=== PATIENT | male | born 1950 | race Caucasian/White ===

== ENCOUNTER → 2024-02-17 16:31 | Outpatient (REF) | payer MEDICARE, SELFPAY | LOC: RAD 16:31 | PROVIDERS: ATTENDING PHYSICIAN Family Medicine | DX: M79.89 Other specified soft tissue disorders (principal); R06.02 Shortness of breath; R91.8 Other nonspecific abnormal finding of lung field; R03.0 Elevated blood-pressure reading, without diagnosis of hypertension | CPT/HCPCS: 71046; 93971 ==

== ENCOUNTER 2024-02-17 18:24 | Emergency (ER) | payer MEDICARE, SELFPAY ==
[2024-02-17 18:30] VITALS: BP 169/99
--- NOTE | 2024-02-17 18:49 | ED.GENMED ---
History of Present Illness
General
Chief Complaint: DVT/Possible Blood Clot
Time Seen by Provider: 02/17/24 18:38
History of Present Illness
History of Present Illness:
73-year-old male presents to the emergency department due to a right lower extremity DVT. He traveled to [place] 2 weeks ago and upon return began developing right leg swelling. Denies any chest pain or shortness of breath. Had an outpatient
ultrasound today showing extensive DVT of essentially the entire right lower extremity however the common femoral was nonocclusive
Review of Systems
Review of Systems
Allergies reviewed?: Yes
All Other Systems: ROS reviewed and negative except as documented in HPI and ROS
Phy Exam
Physical Exam
Physical Exam:
GEN: Well appearing, NAD, WDWN
HEENT: Oral mucosa moist, no scleral icterus
Cardiac: Regular rate
Lung: No respiratory distress, no tachypnea
MSK: Moderate swelling of the right lower extremity from the knee down, strong dorsalis pedis and posterior tibialis pulses, capillary refill less than 2 seconds
Skin: Good color, no pallor or jaundice, no rashes
Neuro: AO x3, moves all extremities freely
Psych: Calm, cooperative
Course
Orders/Labs/Results
Orders:
Orders
02/17/24 18:49
Apixaban [Eliquis] 10 mg PO NOW STA
Vital Signs
Initial and Last Documented VS:
Initial Vital Signs
Temp Pulse Resp BP Pulse Ox
98.4 F 85 18 169/99 97
02/17/24 18:30 02/17/24 18:30 02/17/24 18:30 02/17/24 18:30 02/17/24 18:30
Last Documented Vital Signs
Temp Pulse Resp BP Pulse Ox
98.4 F 85 18 169/99 97
02/17/24 18:30 02/17/24 18:30 02/17/24 18:30 02/17/24 18:30 02/17/24 18:30
MDM/Problems Addressed
MDM/Problems Addressed:
No evidence of phlegmasia cerulea dolens. Will start the patient on Eliquis, educated on risks of anticoagulants, recommend primary care follow-up in 2 weeks
*Critical Care Note
Total Time (30-74mins, 75-104mins- exclusive of procedures): Not Applicable
ED Attending Note
-
Portions of this chart may have been created with voice recognition software.� Occasional wrong word or��sound alike� substitutions may have occurred due to the inherent limitations of voice recognition software.
Discharge Plan
Departure
Patient Disposition: Home (Routine Discharge)
Date of Disposition: 02/17/24
Time of Disposition: 18:49
Patient with high blood pressure during this ER visit?: No
Discharge Problem:
Acute deep vein thrombosis (DVT) of right lower extremity
Instructions: Deep Vein Thrombosis (Blood Clots in the Legs) (DC), Taking oral medicines for blood clots
Prescriptions:
New
Eliquis 5 mg tablet
5 mg PO BID Qty: 74 0RF
Rx Instructions:
10mg PO bid x 7d then 5mg PO bid
Activity Restrictions/Additional Instructions:
Follow up with your Primary doctor in 2 weeks
Interventions
Interventions:
*Risk Screen - Suicide Last Done: 02/17/24 18:30
*General Assessment Last Done: 02/17/24 18:30
*Neglect/Abuse Screening Last Done: 02/17/24 18:30
ED- Fall Risk Assessment Last Done: 02/17/24 18:46
*ED COVID-19 Vaccine History Last Done: 02/17/24 18:30
*Nursing Disposition Last Done: 02/17/24 19:01
ED- Cardiac Assessment Last Done: 02/17/24 18:46
ED- Pulmonary Assessment Last Done: 02/17/24 18:46
ED-Skin Assessment Last Done: 02/17/24 18:46
Discharge Date and Time
Discharge Date/Time: 02/17/24 19:14
Print Language: TRISTANIAN
[2024-02-17] MEDS: ELIQUIS 10 MG PO (19:10)
== END 2024-02-17 19:14 | disposition home or self-care (01) ==
LOC: EMR 18:24
PROVIDERS: EMERGENCY PHYSICIAN Emergency Medicine; FAMILY PHYSICIAN Family Medicine
DX: I82.401 Acute embolism and thrombosis of unspecified deep veins of right lower extremity (principal)
CPT/HCPCS: 71046; 93971; 99284

== ENCOUNTER → 2024-05-29 15:23 | Outpatient (REF) | payer MEDICARE, SELFPAY | LOC: RAD 15:23 | PROVIDERS: ATTENDING PHYSICIAN Family Medicine | DX: I82.541 Chronic embolism and thrombosis of right tibial vein (principal); M79.89 Other specified soft tissue disorders; I10 Essential (primary) hypertension | CPT/HCPCS: 93971 ==

== ENCOUNTER → 2024-08-22 12:55 | Outpatient (REF) | payer MEDICARE, SELFPAY | LOC: RAD 12:55 | PROVIDERS: ATTENDING PHYSICIAN Internal Medicine Hematology & Oncology; FAMILY PHYSICIAN Family Medicine | DX: I82.491 Acute embolism and thrombosis of other specified deep vein of right lower extremity (principal) | CPT/HCPCS: 93971 ==

== ENCOUNTER 2024-12-12 06:28 | Day surgery (SDC) | payer MEDICARE, SELFPAY | END 2024-12-12 09:14 | disposition home or self-care (01) | LOC: GI 06:28 | PROVIDERS: ATTENDING PHYSICIAN Internal Medicine | DX: Z12.11 Encounter for screening for malignant neoplasm of colon (principal); D12.0 Benign neoplasm of cecum; D12.2 Benign neoplasm of ascending colon; D12.3 Benign neoplasm of transverse colon; K55.20 Angiodysplasia of colon without hemorrhage; K51.40 Inflammatory polyps of colon without complications; K62.89 Other specified diseases of anus and rectum | CPT/HCPCS: 45385; 45380; 88305 ==

== ENCOUNTER → 2024-12-20 13:33 | Outpatient (REF) | payer MEDICARE, SELFPAY | LOC: RAD 13:33 | PROVIDERS: ATTENDING PHYSICIAN Internal Medicine Hematology & Oncology; FAMILY PHYSICIAN Family Medicine | DX: I82.491 Acute embolism and thrombosis of other specified deep vein of right lower extremity (principal) | CPT/HCPCS: 93971 ==